=== PATIENT | female | born 1950 | race Caucasian/White ===

== ENCOUNTER 2019-06-21 23:43 | Emergency (ER) | payer MEDICARE ==
--- NOTE | 2019-06-22 00:52 | EDM.PDOC ---
<Dustin Lopez G - Last Filed: 06/22/19 06:48> ED HPI GENERAL MEDICAL PROBLEM - General Chief Complaint: Respiratory Problem Stated Complaint: FELL/MEDICAL VIA [facility] Time Seen by Provider: 06/22/19 00:30 Source of Information: Reports: Patient, EMS History Limitations: Reports: Other (no old records) - History of Present Illness INITIAL COMMENTS - FREE TEXT/NARRATIVE: 69 yo female recently relocated from [place] to our area to live with her son. Her son is engaged to a woman that Viv is not getting along with. Viv has no friends or other family in the area. Feels depressed and isolated. In desperation Viv asked neighbors to call for an ambulance. Wants admission as she is not sure what she is going to do. Onset: Gradual Duration: Week(s):, Getting Worse Quality: Reports: Other (no initial physical complaints) Severity: Severe (despair) Improves with: Reports: None Worsens with: Reports: Other (time) Context: Reports: Other (see HPI) Associated Symptoms: Reports: No Other Symptoms Treatments [employer]: Reports: Other (see below) (none) - Related Data Allergies Allergy/AdvReac Type Severity Reaction Status Date / Time Sulfa (Sulfonamide Allergy Hives Verified 06/21/19 23:52 Antibiotics) Home Meds: Home Meds Enalapril [Vasotec] 40 mg PO DAILY 06/22/19 [History] metFORMIN [Glucophage XR] 500 mg PO BIDMEALS 06/22/19 [History] Past Medical History HEENT History: Reports: None Cardiovascular History: Reports: Hypertension Endocrine/Metabolic History: Reports: Diabetes, Type II Oncologic (Cancer) History: Reports: Uterine - Past Surgical History HEENT Surgical History: Reports: None Female Surgical History: Reports: Hysterectomy Social & Family History - Family History Family Medical History: Noncontributory - Tobacco Use Smoking Status *Q: Never Smoker - Caffeine Use Caffeine Use: Reports: None - Recreational Drug Use Recreational Drug Use: No ED ROS GENERAL - Review of Systems Review Of Systems: See Below Constitutional: Reports: No Symptoms HEENT: Reports: No Symptoms Respiratory: Reports: No Symptoms Cardiovascular: Reports: No Symptoms Endocrine: Reports: No Symptoms GI/Abdominal: Reports: Other (umbilical hernia) : Reports: Incontinence Musculoskeletal: Reports: No Symptoms Skin: Reports: No Symptoms Neurological: Reports: No Symptoms ED EXAM, GENERAL - Physical Exam Exam: See Below Exam Limited By: No Limitations General Appearance: Alert, WD/WN, No Apparent Distress, Obese Eye Exam: Bilateral Eye: Normal Inspection Ears: Normal External Exam, Normal Canal, Hearing Grossly Normal, Normal TMs Ear Exam: Bilateral Ear: Auricle Normal, Canal Normal Nose: Normal Inspection, No Blood Throat/Mouth: Normal Inspection, Normal Lips, Normal Oropharynx, Normal Voice, No Airway Compromise Head: Atraumatic, Normocephalic Neck: Normal Inspection Respiratory/Chest: No Respiratory Distress, Lungs Clear, Normal Breath Sounds, No Accessory Muscle Use Cardiovascular: Regular Rate, Rhythm, No Edema GI/Abdominal: Normal Bowel Sounds, Soft, No Distention, Hernia (umbilical). No : Distended, Guarding, Rigid, Rebound, Tender Back Exam: Normal Inspection. No: CVA Tenderness (R), CVA Tenderness (L) Extremities: Normal Inspection, Normal Range of Motion, Non-Tender, No Pedal Edema Neurological: Alert, Oriented, CN II-XII Intact, Normal Cognition, No Motor/ Sensory Deficits Psychiatric: Normal Affect, Depressed Mood Skin Exam: Warm, Dry, Intact, Normal Color, No Rash Course - Vital Signs Text/Narrative:: Crisis to see Viv around 0830h 06/22/2019. Last Recorded V/S: Last Vital Signs Temp 98.6 F 06/24/19 08:28 Pulse 68 06/24/19 08:28 Resp 16 06/24/19 08:28 BP 147/79 H 06/24/19 08:28 Pulse Ox 95 06/24/19 08:28 - Orders/Labs/Meds Orders: Active Orders 24 hr Category Date Time Status Blood Glucose Check, Bedside [] ONETIME Care 06/23/19 21:11 Inactive Enalapril [Vasotec] Med 06/23/19 21:15 Active 20 mg PO DAILY metFORMIN [Glucophage] Med 06/24/19 08:00 Active 500 mg PO BIDMEALS Medication Orders Enalapril Maleate (Vasotec) 20 mg PO DAILY [facility] Last Admin: 06/24/19 08:26 Dose: 20 mg Admin: 06/23/19 21:44 Dose: Not Given Metformin HCl (Glucophage) 500 mg PO BIDMEALS [facility] Last Admin: 06/24/19 08:26 Dose: 500 mg Labs: Laboratory Tests 06/22/19 06/22/19 06/22/19 Range/Units 00:25 00:25 00:30 WBC (4.5-11.0) K/uL RBC (3.30-5.50) M/uL Hgb (12.0-15.0) g/dL Hct (36.0-48.0) % MCV (80-98) fL MCH (27-31) pg MCHC (32-36) % Plt Count (150-400) K/uL Sodium (140-148) mmol/L Potassium (3.6-5.2) mmol/L Chloride (100-108) mmol/L Carbon Dioxide (21-32) mmol/L Anion Gap (5.0-14.0) mmol/L BUN (7-18) mg/dL Creatinine (0.6-1.0) mg/dL Est Cr Clr Drug Dosing Estimated GFR (MDRD) (>60) Glucose (74-106) mg/dL Calcium (8.5-10.1) mg/dL Creatine Kinase (26-192) U/L Troponin I (0.000-0.056) ng/mL TSH, Ultra Sensitive (0.358-3.740) uIU/mL Urine Color Yellow (YELLOW) Urine Appearance Cloudy A (CLEAR) Urine pH 5.5 (5.0-8.0) Ur Specific [place] 1.025 (1.008-1.030) Urine Protein 30 H (NEGATIVE) mg/dL Urine Glucose (UA) Negative (NEGATIVE) mg/dL Urine Ketones Negative (NEGATIVE) mg/dL Urine Occult Blood Negative (NEGATIVE) Urine Nitrite Negative (NEGATIVE) Urine Bilirubin Negative (NEGATIVE) Urine Urobilinogen 0.2 (0.2-1.0) EU/dL Ur Leukocyte Esterase Trace H (NEGATIVE) Urine RBC 0-5 (0-5) Urine WBC 5-10 H (0-5) Ur Epithelial Cells Many Amorphous Sediment Not seen Urine Bacteria Moderate Urine Mucus Not seen Urine Opiates Screen Negative (NEGATIVE) Ur Oxycodone Screen Negative (NEGATIVE) Urine Methadone Screen Negative (NEGATIVE) Ur Propoxyphene Screen Negative (NEGATIVE) Ur Barbiturates Screen Negative (NEGATIVE) Ur Tricyclics Screen Negative (NEGATIVE) Ur Phencyclidine Scrn Negative (NEGATIVE) Ur Amphetamine Screen Negative (NEGATIVE) U Methamphetamines Scrn Negative (NEGATIVE) Urine MDMA Screen Negative (NEGATIVE) U Benzodiazepines Scrn Negative (NEGATIVE) U Cocaine Metab Screen Negative (NEGATIVE) U Marijuana (THC) Screen Negative (NEGATIVE) Ethyl Alcohol < 3 mg/dL 06/22/19 06/22/19 06/22/19 Range/Units 00:30 00:30 00:30 WBC 9.8 (4.5-11.0) K/uL RBC 3.74 (3.30-5.50) M/uL Hgb 12.2 (12.0-15.0) g/dL Hct 37.1 (36.0-48.0) % MCV 99 H (80-98) fL MCH 33 H (27-31) pg MCHC 33 (32-36) % Plt Count 248 (150-400) K/uL Sodium 142 (140-148) mmol/L Potassium 3.7 (3.6-5.2) mmol/L Chloride 104 (100-108) mmol/L Carbon Dioxide 28 (21-32) mmol/L Anion Gap 9.8 (5.0-14.0) mmol/L BUN 11 (7-18) mg/dL Creatinine 0.9 (0.6-1.0) mg/dL Est Cr Clr Drug Dosing TNP Estimated GFR (MDRD) > 60 (>60) Glucose 177 H (74-106) mg/dL Calcium 8.8 (8.5-10.1) mg/dL Creatine Kinase (26-192) U/L Troponin I < 0.017 (0.000-0.056) ng/mL TSH, Ultra Sensitive 2.769 (0.358-3.740) uIU/mL Urine Color (YELLOW) Urine Appearance (CLEAR) Urine pH (5.0-8.0) Ur Specific [place] (1.008-1.030) Urine Protein (NEGATIVE) mg/dL Urine Glucose (UA) (NEGATIVE) mg/dL Urine Ketones (NEGATIVE) mg/dL Urine Occult Blood (NEGATIVE) Urine Nitrite (NEGATIVE) Urine Bilirubin (NEGATIVE) Urine Urobilinogen (0.2-1.0) EU/dL Ur Leukocyte Esterase (NEGATIVE) Urine RBC (0-5) Urine WBC (0-5) Ur Epithelial Cells Amorphous Sediment Urine Bacteria Urine Mucus Urine Opiates Screen (NEGATIVE) Ur Oxycodone Screen (NEGATIVE) Urine Methadone Screen (NEGATIVE) Ur Propoxyphene Screen (NEGATIVE) Ur Barbiturates Screen (NEGATIVE) Ur Tricyclics Screen (NEGATIVE) Ur Phencyclidine Scrn (NEGATIVE) Ur Amphetamine Screen (NEGATIVE) U Methamphetamines Scrn (NEGATIVE) Urine MDMA Screen (NEGATIVE) U Benzodiazepines Scrn (NEGATIVE) U Cocaine Metab Screen (NEGATIVE) U Marijuana (THC) Screen (NEGATIVE) Ethyl Alcohol mg/dL 06/22/19 Range/Units 11:00 WBC (4.5-11.0) K/uL RBC (3.30-5.50) M/uL Hgb (12.0-15.0) g/dL Hct (36.0-48.0) % MCV (80-98) fL MCH (27-31) pg MCHC (32-36) % Plt Count (150-400) K/uL Sodium (140-148) mmol/L Potassium (3.6-5.2) mmol/L Chloride (100-108) mmol/L Carbon Dioxide (21-32) mmol/L Anion Gap (5.0-14.0) mmol/L BUN (7-18) mg/dL Creatinine (0.6-1.0) mg/dL Est Cr Clr Drug Dosing Estimated GFR (MDRD) (>60) Glucose (74-106) mg/dL Calcium (8.5-10.1) mg/dL Creatine Kinase 95 (26-192) U/L Troponin I (0.000-0.056) ng/mL TSH, Ultra Sensitive (0.358-3.740) uIU/mL Urine Color (YELLOW) Urine Appearance (CLEAR) Urine pH (5.0-8.0) Ur Specific [place] (1.008-1.030) Urine Protein (NEGATIVE) mg/dL Urine Glucose (UA) (NEGATIVE) mg/dL Urine Ketones (NEGATIVE) mg/dL Urine Occult Blood (NEGATIVE) Urine Nitrite (NEGATIVE) Urine Bilirubin (NEGATIVE) Urine Urobilinogen (0.2-1.0) EU/dL Ur Leukocyte Esterase (NEGATIVE) Urine RBC (0-5) Urine WBC (0-5) Ur Epithelial Cells Amorphous Sediment Urine Bacteria Urine Mucus Urine Opiates Screen (NEGATIVE) Ur Oxycodone Screen (NEGATIVE) Urine Methadone Screen (NEGATIVE) Ur Propoxyphene Screen (NEGATIVE) Ur Barbiturates Screen (NEGATIVE) Ur Tricyclics Screen (NEGATIVE) Ur Phencyclidine Scrn (NEGATIVE) Ur Amphetamine Screen (NEGATIVE) U Methamphetamines Scrn (NEGATIVE) Urine MDMA Screen (NEGATIVE) U Benzodiazepines Scrn (NEGATIVE) U Cocaine Metab Screen (NEGATIVE) U Marijuana (THC) Screen (NEGATIVE) Ethyl Alcohol mg/dL Meds: Medications Generic Name Dose Route Start Last Admin Trade Name Freq PRN Reason Stop Dose Admin Enalapril Maleate 20 mg 06/23/19 21:15 06/24/19 08:26 Vasotec PO 20 mg DAILY ADELE Administration Metformin HCl 500 mg 06/24/19 08:00 06/24/19 08:26 Glucophage PO 500 mg BIDMEALS ADELE Administration Discontinued Medications Generic Name Dose Route Start Last Admin Trade Name Freq PRN Reason Stop Dose Admin Ketorolac Tromethamine 60 mg 06/22/19 11:29 06/22/19 11:50 Toradol IM 06/22/19 11:30 60 mg ONETIME ONE Administration Departure - Departure Disposition: DC/Tfer to Psych Hosp/Unit 65 Condition: Good Clinical Impression: Elevated blood sugar Obesity Qualifiers: Obesity type: due to excess calories Obesity classification: adult class 3 ( BMI >= 40) Serious obesity comorbidity presence: without serious comorbidity Body mass index: BMI 70 or greater Qualified Code(s): E66.01 - Morbid (severe) obesity due to excess calories; Z68.45 - Body mass index (BMI) 70 or greater, adult Depression Qualifiers: Depression Type: unspecified Qualified Code(s): F32.9 - Major depressive disorder, single episode, unspecified Psychosis Qualifiers: Psychosis type: unspecified psychosis type Qualified Code(s): F29 - Unspecified psychosis not due to a substance or known physiological condition - Discharge Information *PRESCRIPTION DRUG MONITORING PROGRAM REVIEWED*: No *COPY OF PRESCRIPTION DRUG MONITORING REPORT IN PATIENT MATTHEW: No Referrals: PCP,None [Primary Care Provider] - Forms: ED Department Discharge <Peng Barcenas - Last Filed: 06/24/19 07:58> Course - Re-Assessments/Exams Free Text/Narrative Re-Assessment/Exam: Ordered home metformin and anti-hypertensive at half dose. Patient declined this overnight as well as POC glucose check. 06/24/19 07:58 <BatshevarToo - Last Filed: 06/24/19 10:38> Course - Re-Assessments/Exams Free Text/Narrative Re-Assessment/Exam: 06/22/19 11:37 Was able to have a conversation with Viv she is very focused on her prior life in [place] however things are not clear in that she states she was just visiting to [place] came with her son in October 2018. She believes her home is being taken care of in [place] however we have no way of cooperating this as she is not forthcoming with information. She also does not want us talking to her son at this time. She states she is having pain all over and is weak from her recent fall this morning there is no particular point tenderness and she is very histrionic in her description. General: Female, not in any distress, alert and oriented x3 HEENT: head is atraumatic normocephalic, eyes pupils equal round reactive to light, sclera clear no conjunctivitis appreciated. Ears tympanic membranes clear and polk landmarks and light reflex are present bilaterally canals are clear. Nose no septal deviation, nares are clear, no blood present. Mouth mucosa is moist and pink no erythema or exudate noted in soft palate, tongue is midline uvula is midline, dentition is intact. Neck: Supple no thyromegaly no tracheal deviation. Nodes: Cervical nodes subclavicular nodes nontender no palpable lymphadenopathy noted. Lungs: clear to auscultation bilaterally with symmetrical respirations, no adventitious noise appreciated. CV: Regular rate and rhythm S1 and S2 appreciated no murmurs rubs or gallops noted. Abdomen: Soft, generalized tenderness to palpation with light touch, obese , no palpable masses or organomegaly appreciated, no distention no guarding bowel sounds are present, ]. Skin: Warm and dry, intact Extremities: No lower extremity edema appreciated, pedal pulse is +2. 06/23/19 15:08 Rounded on Viv today she states she's not having any difficulties she now admits that she has 3 Homes back in [place] that she could certainly stay at but she has difficulty remembering some of the details. she knows she is in [place] and that it was a [address] get here but declines any pain or other issues Departure - Departure Time of Disposition: 10:37 - Assessment/Plan Plan: Assessment Acuity = acute Site and laterality = psychosis NOS complicated patient known history of diabetes mellitus type 2 as well as hypertension Etiology = unknown etiology Manifestations = currently on a 72 hour hold for unable to care for herself Location of injury = Home Lab values = CBC, CMP, urine drug screen and alcohol all negative urinalysis did reveal 5-10 WBCs consistent pyuria however culture revealed mixed mari Plan She was placed on a 72 hour hold this morning for inability to care for herself due to her current psychotic state. After a lengthy stay in the emergency department we did obtain acceptance from [facility] in [facility] This note was dictated using [employer] voice recognition software please call with any questions on syntax or grammar.
[2019-06-22] MEDS ORDERED: Ketorolac 60 MG/2 ML SDV IM ONE (11:29)
[2019-06-23] MEDS: Enalapril 5 MG Tab PO SCH (21:44)
[2019-06-24] MEDS ORDERED: metFORMIN 500 MG Tab PO SCH (08:00)
[2019-06-24] MEDS: Enalapril 5 MG Tab PO SCH (08:26)
== END 2019-06-24 11:30 ==
LOC: JP.ED 23:43
DX: F32.3 Major depressive disorder, single episode, severe with psychotic features (principal); E11.65 Type 2 diabetes mellitus with hyperglycemia; E66.01 Morbid (severe) obesity due to excess calories; Z68.45 Body mass index [BMI] 70 or greater, adult; I10 Essential (primary) hypertension; Z88.2 Allergy status to sulfonamides; Z79.84 Long term (current) use of oral hypoglycemic drugs; Z79.899 Other long term (current) drug therapy
CPT/HCPCS: 36415; 80048; 80305; 81001; 82550; 84443; 84484; 85027; 87086; 96372; 99284; A9270; G0480; J1885